=== PATIENT | male | born 1945 | race Caucasian/White ===

== ENCOUNTER 2019-11-21 10:34 | Emergency (ER) | payer BC ==
[~2019-11-21] VITALS: Ht 175.3 cm; Wt 79.1 kg
[2019-11-21 10:46] VITALS: BP 131/70
[2019-11-21] MEDS ORDERED: ASPIRIN 81M81 MG/TA2 PO (11:00)
[2019-11-21] MEDS ORDERED: PRAVACHOL80 MG PO (11:01)
[2019-11-21] MEDS ORDERED: GLUCOTROL 5M5 MG/TAB PO (11:02)
[2019-11-21] MEDS ORDERED: ZESTRIL 10MG10 MG PO (11:02)
[2019-11-21 11:53] LABS: BASO % 0.5 % (0.0-2.0); EOS # 0.4 (0.0-0.7); EOS % 5.3 % (0-4.0); GRAN # 5.9 (1.4-6.5); GRAN % 74.6 % (42.2-75.2); HEMATOCRIT 44.2 % (42.0-52.0); HEMOGLOBIN 14.9 g/dl (13.5-18.0); LYMPH % 12.9 % (20.0-51.0); MEAN CELL VOLUME 99 fl (80.0-100.0); MEAN CORPUSCULAR HEMOGLOBIN 34 pg (27.0-31.0); MEAN CORPUSCULAR HGB CONC 34 g/dl (33.0-37.0); MEAN PLATELET VOLUME 10.3 fl (7.4-10.4); MONO # 0.5 (0.1-0.6); MONO % 6.4 % (1.7-9.3); PLATELET COUNT 131 K/mm3 (130-400); RED BLOOD COUNT 4.45 M/mm3 (4.20-5.60); REDCELL DISTRIBUTION WIDTH-CV 12.1 % (11.5-14.5)
[2019-11-21 11:54] LABS: COLLECTION METHOD CLEAN CATCH
[2019-11-21 12:01] LABS: BILIRUBIN,TOTAL 0.9 mg/dL (0.0-1.0); CALCIUM 9.3 mg/dL (8.4-10.2); CREATININE, serum 1.68 (0.66-1.25); POTASSIUM 4.2 mmol/L (3.4-5.0)
[2019-11-21 12:03] LABS: PH 6 (5-8); SQUAMOUS EPITHELIAL None Seen /hpf; URINE APPEARANCE Clear; URINE BACTERIA None Seen /hpf; URINE BILIRUBIN Negative (NEGATIVE); URINE BLOOD Negative (NEGATIVE); URINE COLOR Yellow; URINE GLUCOSE 1+ (NEGATIVE); URINE KETONE Negative (NEGATIVE); URINE LEUKOCYTE ESTERASE Negative (NEGATIVE); URINE NITRATE Negative (NEGATIVE); URINE PROTEIN(semi-quant) Negative (NEGATIVE); URINE RBC None Seen /hpf
[2019-11-21 15:35] VITALS: PULSE 56; TEMP 98.2
== END 2019-11-21 15:40 | disposition home or self-care (01) ==
LOC: COL.ER 10:34
PROVIDERS: Nurse Practitioner
DX: K40.90 Unilateral inguinal hernia, without obstruction or gangrene, not specified as recurrent (principal); I25.10 Atherosclerotic heart disease of native coronary artery without angina pectoris; I10 Essential (primary) hypertension; E78.5 Hyperlipidemia, unspecified; Z95.9 Presence of cardiac and vascular implant and graft, unspecified; Z79.84 Long term (current) use of oral hypoglycemic drugs; Z79.82 Long term (current) use of aspirin
CPT/HCPCS: J7030; Q9967